=== PATIENT | female | born 1995 | race Caucasian/White ===

== ENCOUNTER 2021-03-23 02:50 | Emergency (ER) | payer BC ==
[2021-03-23] MEDS ORDERED: Ketorolac 30 MG/ML SDV IM ONE (03:02)
[2021-03-23] MEDS ORDERED: Amoxicillin/Clavulanate K 875-125 MG Tab PO ONE (03:02)
[2021-03-23] MEDS ORDERED: Clindamycin HCl 150 MG Cap PO STA (03:22)
--- NOTE | 2021-03-23 03:29 | EDM.PDOC ---
ED HPI GENERAL MEDICAL PROBLEM - General Chief Complaint: General Stated Complaint: tooth infection Time Seen by Provider: 03/23/21 03:10 Source of Information: Reports: Patient History Limitations: Reports: No Limitations - History of Present Illness INITIAL COMMENTS - FREE TEXT/NARRATIVE: Patient presented to the ED because of left upper dental pain and swelling of the gum and cheek. Left tooth/cheek Pain Score (Numeric/FACES): 8 - Related Data Allergies Allergy/AdvReac Type Severity Reaction Status Date / Time acetaminophen [From Tylenol] Allergy Hives Verified 03/23/21 03:10 nickel Allergy Hives Verified 03/23/21 03:24 Home Meds: Home Meds Amoxicillin/Clavulanate K [Augmentin 875-125 MG] 1 tab PO BID #20 tablet 03/23/21 [Rx] Clindamycin HCl 450 mg PO TID #90 capsule 03/23/21 [Rx] Ibuprofen 800 mg PO TID PRN #30 tablet 03/23/21 [Rx] Levonorgestrel-Ethin Estradiol [Vienva-28 Tablet] 1 tab PO DAILY 03/23/21 [History] Past Medical History - Past Health History Medical/Surgical History: Denies Medical/Surgical History Social & Family History - Family History Family Medical History: No Pertinent Family History - Tobacco Use Tobacco Use Status *Q: Never Tobacco User - Caffeine Use Caffeine Use: Reports: Coffee - Recreational Drug Use Recreational Drug Use: No ED ROS GENERAL - Review of Systems Review Of Systems: See Below Constitutional: Reports: No Symptoms HEENT: Reports: Dental Pain Respiratory: Reports: No Symptoms Cardiovascular: Reports: No Symptoms Endocrine: Reports: No Symptoms GI/Abdominal: Reports: No Symptoms : Reports: No Symptoms Musculoskeletal: Reports: No Symptoms Skin: Reports: No Symptoms Neurological: Reports: No Symptoms Psychiatric: Reports: No Symptoms ED EXAM, GENERAL - Physical Exam Exam: See Below Exam Limited By: No Limitations General Appearance: Alert, No Apparent Distress Eye Exam: Bilateral Eye: PERRL Ears: Normal External Exam, Normal Canal Nose: Normal Inspection, Normal Mucosa, No Blood Throat/Mouth: Normal Inspection, Normal Lips, Normal Teeth, Other (gingival swelling) Neck: Normal Inspection, Supple, Non-Tender, Full Range of Motion Respiratory/Chest: No Respiratory Distress, Lungs Clear, Normal Breath Sounds, No Accessory Muscle Use, Chest Non-Tender Cardiovascular: Normal Peripheral Pulses, Regular Rate, Rhythm, No Edema, No Gallop, No JVD, No Murmur, No Rub GI/Abdominal: Normal Bowel Sounds, Soft, Non-Tender, No Organomegaly, No Distention, No Abnormal Bruit Back Exam: Normal Inspection, Full Range of Motion Extremities: Normal Inspection, Normal Range of Motion, Non-Tender Neurological: Alert, Oriented, CN II-XII Intact, Normal Cognition, Normal Reflexes, No Motor/Sensory Deficits Psychiatric: Normal Affect Course - Vital Signs Text/Narrative:: Toradol 60 mg IM x1 Augmentin 875 mg PO x1 Clindamycin 600 mg PO x1 Last Recorded V/S: Last Vital Signs Temp 37.0 C 03/23/21 03:04 Pulse 80 03/23/21 03:04 Resp 18 03/23/21 03:04 BP 124/81 03/23/21 03:04 Pulse Ox 99 03/23/21 03:04 - Orders/Labs/Meds Orders: Active Orders 24 hr Category Date Time Status clindamycin HCL [Cleocin] Med 03/23/21 03:22 Stat 600 mg PO NOW STA Meds: Medications Discontinued Medications Generic Name Dose Route Start Last Admin Trade Name Freq PRN Reason Stop Dose Admin Amoxicillin/Clavulanate Potassium 1 tab 03/23/21 03:02 03/23/21 03:11 Amoxicillin/Clavulanate K 875-125 Mg Tab PO 03/23/21 03:03 1 tab ONETIME ONE Administration Ketorolac Tromethamine 60 mg 03/23/21 03:02 03/23/21 03:11 Ketorolac 30 Mg/Ml Sdv IM 03/23/21 03:03 60 mg ONETIME ONE Administration Departure - Departure Time of Disposition: 03:45 Disposition: Home, Self-Care 01 Condition: Good Clinical Impression: Dental infection, Chronic dental pain - Discharge Information Prescriptions: Amoxicillin/Clavulanate K [Augmentin 875-125 MG] 1 tab PO BID #20 tablet Clindamycin HCl 450 mg PO TID #90 capsule Ibuprofen 800 mg PO TID PRN #30 tablet PRN Reason: Pain Instructions: Dental Abscess, [id number] Additional Instructions: Please read discharge instructions on dental infection and dental pain Gurgle with salt and water Take ibuprofen 800 mg with tylenol 1000 mg every 8 hours as needed for pain Agmentin 875 mg twice daily for 10 days Clindamycin 450 mg 3 times daily for 10 days Follow up with your dentist this coming week Sepsis Event Note (ED) - Focused Exam Vital Signs: Vital Signs Temp Pulse Resp BP Pulse Ox 03/23/21 03:04 37.0 C 80 18 124/81 99 - My Orders Last 24 Hours: My Active Orders 03/23/21 03:22 clindamycin HCL [Cleocin] 600 mg PO NOW STA - Assessment/Plan Last 24 Hours: My Active Orders 03/23/21 03:22 clindamycin HCL [Cleocin] 600 mg PO NOW STA
== END 2021-03-23 03:35 | disposition home or self-care (01) ==
LOC: FB.ED 02:50
DX: K04.7 Periapical abscess without sinus (principal); Z88.8 Allergy status to other drugs, medicaments and biological substances; Z91.048 Other nonmedicinal substance allergy status
CPT/HCPCS: 96372; 99282; A9270; J1885